=== PATIENT | male | born 1955 | race Caucasian/White ===

== ENCOUNTER 2017-02-14 10:36 | Day surgery (SDC) | payer OTHER ==
[~2017-02-14] VITALS: Ht 177.8 cm; Wt 68.4 kg
[2017-02-14] MEDS ORDERED: ASPIRIN 32325 MG/TAB PO (11:29)
[2017-02-14] MEDS ORDERED: FLONASEALLERGY NS (11:30)
[2017-02-14] MEDS ORDERED: MULTI VITAMINS1 TAB PO (11:30)
[2017-02-14] MEDS ORDERED: WELLBUTRIN XL300 M1 PO (11:30)
[2017-02-14 11:57] VITALS: BP 136/79; PULSE 69; TEMP 97.9
[2017-02-14 15:15] VITALS: BP 130/80; PULSE 65; TEMP 98.7
[2017-02-14] MEDS ORDERED: NORCO 325 MG-51 TAB PO (15:54)
[2017-02-14 16:00] VITALS: BP 129/78; PULSE 72
[2017-02-14 16:30] VITALS: BP 135/79; PULSE 72
[2017-02-14 17:00] VITALS: BP 139/68; PULSE 76
== END 2017-02-14 17:55 | disposition home or self-care (01) ==
LOC: SDCO 10:36
DX: K40.20 Bilateral inguinal hernia, without obstruction or gangrene, not specified as recurrent (principal); F41.9 Anxiety disorder, unspecified
CPT/HCPCS: A4315; C1781; J0690; J1100; J1885; J2405; J2704; J2710; J2765; J3010; J7120